=== PATIENT | female | born 1945 | race Caucasian/White ===

== ENCOUNTER 2025-02-07 16:19 | Emergency (ER) | payer OTHER, MEDICARE | END 2025-02-07 18:00 | disposition home or self-care (01) | LOC: VM.ED 16:19 | DX: Z04.1 Encounter for examination and observation following transport accident (principal); Z88.0 Allergy status to penicillin; Z87.828 Personal history of other (healed) physical injury and trauma | CPT/HCPCS: 99283; 99284 ==